=== PATIENT | female | born 1945 | race African-American/Black ===

== ENCOUNTER 2020-03-31 10:09 | Emergency (ER) | payer OTHER ==
[~2020-03-31] VITALS: Ht 170.2 cm; Wt 108.9 kg
[2020-03-31 10:44] LABS: ABSOLUTE NEUTROPHILS 3.6 thou/uL (1.4-8.2); BASOPHILS 0.5 % (0.0-2.0); EOSINOPHILS 1.9 % (0.0-3.0); HEMATOCRIT 33.9 % (37.0-47.0); LYMPHOCYTES 33.4 % (24.0-44.0); MCHC 32.4 g/dL (28.0-37.0); MCV 80.1 fL (80.0-100.0); MONOCYTES 7.4 % (1.0-8.0); POLYS 56.8 % (36.0-66.0); RBC 4.23 mil/uL (4.20-5.00); RDW 16.2 % (10.5-14.5); WBC 6.3 thou/uL (4.0-11.0)
[2020-03-31 10:59] LABS: ANION GAP 11 mmol/L (7-16); BUN 21 mg/dL (7-18); CALCIUM 10.2 mg/dL (8.5-10.1); CHLORIDE 105 mmol/L (98-107); CO2 23 mmol/L (21-32); CREATININE 1.2 mg/dL (0.6-1.0); GLUCOSE 115 mg/dL (74-106); SODIUM 139 mmol/L (136-145)
[2020-03-31 11:08] LABS: ALBUMIN 3.4 g/dL (3.4-5.0); DIRECT BILIRUBIN < 0.1 mg/dL (<0.1-0.2); SGOT 19 U/L (15-37); SGPT 26 U/L (30-65); TOTAL BILIRUBIN 0.3 mg/dL (0.2-1.0); TOTAL PROTEIN 7.6 g/dL (6.4-8.2); TROPONIN-I <0.06 ng/mL (<0.06)
[2020-03-31 13:17] LABS: PLATELET COUNT 159 thou/uL (150-400)
[2020-03-31] MEDS ORDERED: VALIUM2 MG PO (14:44)
[2020-03-31] MEDS ORDERED: MOBIC15 MG PO (14:44)
[2020-03-31 14:58] VITALS: BP 142/80
--- NOTE | 2020-04-01 08:36 | EKG ---
[facility] [place] [address] ELECTROCARDIOGRAM REPORT Name: EMIIL CROSS Room #: DEP [facility]#: [id number] Admission: 03/31/20 Attend Phys: Discharge: 03/31/20 Date of : 47 Report #: [id number] THIS REPORT FOR: cc: Ashley Aguilar Diane C. DO Lundgren,Benjie Fernandez MD [facility] ~ THIS REPORT FOR: //name// [facility] ED Test Date: 2020-03-31 Test Time: 10:16:08 Pat Name: EMILI CROSS Department: Room: Gender: F Human Resources Office Manager: ESHEETS : 1945 Requested By: Sabi Porter Order Number: [id number] MD: Benjie Ag Measurements Intervals [place] Rate: 89 P: 54 IL: 145 QRS: -25 QRSD: 147 T: 32 QT: 354 QTc: 431 Interpretive Statements Sinus rhythm Ventricular premature complex Right bundle branch block Left ventricular hypertrophy Compared to ECG 10/05/2002 08:55:31 Ventricular premature complex(es) now present Right bundle-branch block now present Electronically Signed On 04-01-2020 8:36:00 CDT by Benjie Ag [email or web address] <ELECTRONICALLY SIGNED> By: Benjie Ag MD, [facility] 04/01/20 [id number] Benjie Ag MD, [facility] /EPI
== END 2020-03-31 14:59 | disposition home or self-care (01) ==
LOC: ER 10:09
PROVIDERS: Emergency Medicine
DX: S06.0X0A Concussion without loss of consciousness, initial encounter (principal); S13.4XXA Sprain of ligaments of cervical spine, initial encounter; R07.89 Other chest pain; R42 Dizziness and giddiness; R41.0 Disorientation, unspecified; R53.1 Weakness; R26.2 Difficulty in walking, not elsewhere classified; I10 Essential (primary) hypertension; E11.9 Type 2 diabetes mellitus without complications; V89.2XXA Person injured in unspecified motor-vehicle accident, traffic, initial encounter; Y93.89 Activity, other specified; Y92.488 Other paved roadways as the place of occurrence of the external cause; Y99.8 Other external cause status